=== PATIENT | male | born 1960 | race Caucasian/White ===

== ENCOUNTER 2016-03-25 15:56 | Emergency (ER) | payer MEDICARE, OTHER ==
[~2016-03-25] VITALS: Ht 177.8 cm; Wt 100.0 kg
[~2016-03-25 15:56] MED LIST: AMITRIPTYLINE H25 M1 PO; AMITRIPTYLINE H50 M1 PO; AMOXICILLIN 8751 TAB PO; ASPIRIN 81M81 MG/TA2 PO; ATROPINE SULFATE5 ML OP; BENADRYL50 MG PO; BONINE25 MG PO; CEPHALEXIN500 M1 PO; CLOTRIM ANTIFUNGAL1% TP; COMBIGAN 0.2%-0.5 ML OS; COUMADIN 5MG5 MG/TAB PO; DAILY VITAMIN1 TAB PO; DILAUDID 4MG TAB4 MG PO; DOXYCYCLINE 10100 MG PO; DULCOLAX S10 MG/SUPP RC; DYAZIDE 25 MG-31 CAP PO; EFFEXOR-XR150 MG PO; FLOMAX 0.40.4 MG/CAP PO; GLUCOPHAGE PO; HALDOL .5M0.5 MG/TAB PO; HUMALOG100 U/ML SC; HUMALOG100 U/ML SQ; HUMULIN 70/3100 U/ML; INSHUMULIN7030 SQ; INSULIN 70/3100 U/ML SQ; INSULIN HUMA100 U/ML SC; KLONOPIN 1MG1 MG PO; LANTUS; LANTUS100 U/ML; LANTUS100 U/ML SQ; LEVAQUIN 5500 MG/101 IV; LEVAQUIN 5500 MG/TA1 PO; LEVEMIR FLEX100 U/ML SQ; LORTAB 7.5/5001 TAB; LOTRIMIN15 GM TOP; LOVENOX 6060 MG/0.6 SQ; MACROBID 1100 MG/CAP PO; MECLIZINE25 MG PO; MEN'S MULTIVITA1 TAB PO; MILK OF MA400 MG/5 M PO; MIRALAX PA17 GM/Dose PO; MORPHINE 1515 MG/TAB PO; MOTRIN 400400 MG/TAB PO; MS CONTIN60 MG PO; MULTI-DAY1 TA1 PO; NEURONTIN400 MG/CAP PO; NORCO 325 MG-101 TAB PO; NORCO 325 MG-51 TAB PO; NORCO 325 MG-7.1 TAB; NORCO 325 MG-7.1 TAB PO; NOVLOG SQ; PERCOCET 325 MG1 TA2 PO; PERCR 7.5 PO; PRILOSEC10 MG PO; PRINCIPEN500 MG PO; PROAIR HFA0.09 MG/AC IH; RAPAFLO8 MG PO; SAVELLA100 MG PO; SAVELLA25 MG PO; SAVELLA50 MG PO; SENNA8.6 MG PO; SENOKOT S 50 MG1 TAB PO; SENOKOT8.6 MG PO; STOOL SOFTENER100 M2 PO; TIMOLOL MALEATE5 M1 OP; TRAMADOL; TRESIBA FL200 UNIT/1 SQ; TRICOR145 MG PO; TYLENOL 325MG325 MG PO; ULTRAM 50MG TAB50 MG PO; UNABLE; VENTOLIN0.09 MG IH; VICODIN PO; VITAMIN C500 MG PO; VOLTAREN SR25 MG/TAB PO; ZANAFLEX 4MG TAB4 MG PO; ZITHROMAX 250M250 MG PO; ZOFRAN 4MG T4 MG/TAB PO; ZOFRAN8 MG PO; [UNRECOGNIZED DRUG - REMARK] PO
[2016-03-25 16:56] LABS: BASO % 0.4 % (0.0-2.0); EOS # 0.1 (0.0-0.7); EOS % 1.1 % (0-4.0); GRAN # 3.7 (1.4-6.5); GRAN % 70.9 % (42.2-75.2); LYMPH # 0.9 (1.2-3.4); LYMPH % 17.7 % (20.0-51.0); MEAN CELL VOLUME 87 fl (80.0-100.0); MEAN CORPUSCULAR HGB CONC 34 g/dl (33.0-37.0); MEAN PLATELET VOLUME 10.7 fl (7.4-10.4); MONO # 0.5 (0.1-0.6); MONO % 9.5 % (1.7-9.3); PLATELET COUNT 219 K/mm3 (130-400); RED BLOOD COUNT 3.39 M/mm3 (4.20-5.60); REDCELL DISTRIBUTION WIDTH-CV 13.7 % (11.5-14.5); WHITE BLOOD COUNT 5.3 K/mm3 (4.8-10.8)
[2016-03-25 17:05] LABS: HEMATOCRIT 29.5 % (42.0-52.0); HEMOGLOBIN 9.9 g/dl (13.5-18.0); MEAN CORPUSCULAR HEMOGLOBIN 29 pg (27.0-31.0)
[2016-03-25 17:12] LABS: ADJUSTED CALCIUM 9.2 mg/dL (8.4-10.2); ALBUMIN 3.5 gm/dL (3.5-5.0); BILIRUBIN,TOTAL 0.5 mg/dL (0.0-1.0); C-REACTIVE PROTEIN 2.2 mg/dL (0.0-0.9); CALCIUM 8.8 mg/dL (8.4-10.2); CREATININE, serum 1.1 mg/dL (0.66-1.25); POTASSIUM 4.5 mmol/L (3.4-5.0); TOTAL PROTEIN 7.1 gm/dL (6.4-8.2)
[2016-03-25 19:53] VITALS: BP 126/71; PULSE 83; TEMP 97.4
== END 2016-03-25 19:54 | disposition home or self-care (01) ==
LOC: COL.ER 15:56
PROVIDERS: Physician Assistant
DX: M70.862 Other soft tissue disorders related to use, overuse and pressure, left lower leg (principal); L89.899 Pressure ulcer of other site, unspecified stage; E10.65 Type 1 diabetes mellitus with hyperglycemia; E10.40 Type 1 diabetes mellitus with diabetic neuropathy, unspecified; Z79.4 Long term (current) use of insulin; I10 Essential (primary) hypertension; S92.532G Displaced fracture of distal phalanx of left lesser toe(s), subsequent encounter for fracture with delayed healing; X58.XXXD Exposure to other specified factors, subsequent encounter; Z99.3 Dependence on wheelchair
CPT/HCPCS: J1170; J1815; J7030; J7040

== ENCOUNTER 2016-03-26 17:16 | Inpatient (IN) | payer MEDICARE, MEDICAID ==
[~2016-03-26] VITALS: Ht 177.8 cm; Wt 102.5 kg
[2016-03-26 18:14] LABS: BASO % 0.3 % (0.0-2.0); EOS % 0.5 % (0-4.0); GRAN # 4.6 (1.4-6.5); GRAN % 70.9 % (42.2-75.2); HEMATOCRIT 30.1 % (42.0-52.0); HEMOGLOBIN 10.2 g/dl (13.5-18.0); LYMPH # 1.3 (1.2-3.4); LYMPH % 19.5 % (20.0-51.0); MEAN CELL VOLUME 86 fl (80.0-100.0); MEAN CORPUSCULAR HEMOGLOBIN 29 pg (27.0-31.0); MEAN CORPUSCULAR HGB CONC 34 g/dl (33.0-37.0); MEAN PLATELET VOLUME 10.6 fl (7.4-10.4); MONO # 0.6 (0.1-0.6); MONO % 8.5 % (1.7-9.3); PLATELET COUNT 243 K/mm3 (130-400); RED BLOOD COUNT 3.51 M/mm3 (4.20-5.60); REDCELL DISTRIBUTION WIDTH-CV 13.7 % (11.5-14.5); WHITE BLOOD COUNT 6.5 K/mm3 (4.8-10.8)
[2016-03-26 18:28] LABS: ADJUSTED CALCIUM 9.4 mg/dL (8.4-10.2); ALBUMIN 3.5 gm/dL (3.5-5.0); BILIRUBIN,TOTAL 0.5 mg/dL (0.0-1.0); C-REACTIVE PROTEIN 2.1 mg/dL (0.0-0.9); CREATININE, serum 0.93 mg/dL (0.66-1.25); POTASSIUM 4.1 mmol/L (3.4-5.0); TOTAL PROTEIN 7.2 gm/dL (6.4-8.2)
[2016-03-26 19:04] LABS: PH 5 (5-8); SQUAMOUS EPITHELIAL None Seen /hpf; URINE APPEARANCE Clear; URINE BACTERIA Rare /hpf; URINE BILIRUBIN Negative (NEGATIVE); URINE BLOOD 2+ (NEGATIVE); URINE COLOR Straw; URINE GLUCOSE 3+ (NEGATIVE); URINE KETONE Negative (NEGATIVE); URINE UROBILINOGEN Negative (NEGATIVE); URINE WBC 0-2 /hpf
[2016-03-26 21:57] VITALS: BP 151/69; PULSE 93; TEMP 98.1
[2016-03-27 03:55] VITALS: BP 124/71; PULSE 87; TEMP 98
[2016-03-27 08:10] VITALS: BP 126/68; PULSE 88; TEMP 98.4
[2016-03-27 11:59] VITALS: BP 147/87; PULSE 78; TEMP 98.7
[2016-03-27 16:13] VITALS: BP 127/72; PULSE 76; TEMP 98
[2016-03-27 20:01] VITALS: BP 133/66; PULSE 71; TEMP 98.7
[2016-03-27 23:37] VITALS: BP 119/71; PULSE 72; TEMP 98.2
[2016-03-28 03:52] VITALS: BP 124/72; PULSE 67; TEMP 97.4
[2016-03-28 06:54] LABS: BASO % 0.4 % (0.0-2.0); GRAN % 38.2 % (42.2-75.2); LYMPH # 2.8 (1.2-3.4); LYMPH % 53.8 % (20.0-51.0); MEAN CELL VOLUME 90 fl (80.0-100.0); MEAN CORPUSCULAR HGB CONC 33 g/dl (33.0-37.0); MEAN PLATELET VOLUME 10.7 fl (7.4-10.4); MONO # 0.4 (0.1-0.6); MONO % 7.2 % (1.7-9.3); PLATELET COUNT 237 K/mm3 (130-400); RED BLOOD COUNT 3.08 M/mm3 (4.20-5.60); REDCELL DISTRIBUTION WIDTH-CV 14.3 % (11.5-14.5); WHITE BLOOD COUNT 5.3 K/mm3 (4.8-10.8)
[2016-03-28 06:55] LABS: HEMATOCRIT 27.7 % (42.0-52.0); MEAN CORPUSCULAR HEMOGLOBIN 29 pg (27.0-31.0)
[2016-03-28 07:11] LABS: CALCIUM 8.4 mg/dL (8.4-10.2); CREATININE, serum 0.91 mg/dL (0.66-1.25)
[2016-03-28 08:39] VITALS: BP 106/62; PULSE 74; TEMP 97.6
[2016-03-28 11:34] VITALS: BP 127/67; PULSE 72; TEMP 98
[2016-03-28 16:49] VITALS: BP 133/78; PULSE 74; TEMP 97.9
[2016-03-28 20:11] VITALS: BP 125/61; PULSE 79; TEMP 98.3
[2016-03-29] VITALS (7 sets, daily range): BP systolic 114–138; BP diastolic 57–85; PULSE 69–78; TEMP 97.4–98.8
[2016-03-29 08:01] LABS: BASO % 0.2 % (0.0-2.0); LYMPH # 2.2 (1.2-3.4); LYMPH % 39.2 % (20.0-51.0); MEAN CELL VOLUME 89 fl (80.0-100.0); MEAN CORPUSCULAR HGB CONC 32 g/dl (33.0-37.0); MEAN PLATELET VOLUME 10.8 fl (7.4-10.4); MONO # 0.4 (0.1-0.6); MONO % 6.9 % (1.7-9.3); PLATELET COUNT 256 K/mm3 (130-400); RED BLOOD COUNT 3.21 M/mm3 (4.20-5.60); REDCELL DISTRIBUTION WIDTH-CV 14.3 % (11.5-14.5); WHITE BLOOD COUNT 5.6 K/mm3 (4.8-10.8)
[2016-03-29 08:04] LABS: HEMATOCRIT 28.7 % (42.0-52.0); HEMOGLOBIN 9.2 g/dl (13.5-18.0); MEAN CORPUSCULAR HEMOGLOBIN 29 pg (27.0-31.0)
[2016-03-29 08:16] LABS: CALCIUM 8.8 mg/dL (8.4-10.2); CREATININE, serum 0.99 mg/dL (0.66-1.25); POTASSIUM 4.5 mmol/L (3.4-5.0)
[2016-03-30 03:52] VITALS: BP 144/83; PULSE 80; TEMP 98.7
[2016-03-30 07:35] VITALS: BP 132/68; PULSE 77; TEMP 98.1
[2016-03-30 09:36] LABS: BASO % 0.3 % (0.0-2.0); GRAN # 3.9 (1.4-6.5); GRAN % 59.4 % (42.2-75.2); LYMPH # 2.3 (1.2-3.4); LYMPH % 34.3 % (20.0-51.0); MEAN CELL VOLUME 91 fl (80.0-100.0); MEAN CORPUSCULAR HGB CONC 32 g/dl (33.0-37.0); MEAN PLATELET VOLUME 10.6 fl (7.4-10.4); MONO # 0.4 (0.1-0.6); MONO % 5.5 % (1.7-9.3); PLATELET COUNT 265 K/mm3 (130-400); RED BLOOD COUNT 3.15 M/mm3 (4.20-5.60); REDCELL DISTRIBUTION WIDTH-CV 14.3 % (11.5-14.5); WHITE BLOOD COUNT 6.6 K/mm3 (4.8-10.8)
[2016-03-30 09:40] LABS: HEMATOCRIT 28.6 % (42.0-52.0); HEMOGLOBIN 9.2 g/dl (13.5-18.0); MEAN CORPUSCULAR HEMOGLOBIN 29 pg (27.0-31.0)
[2016-03-30 09:49] LABS: CALCIUM 9.1 mg/dL (8.4-10.2); CREATININE, serum 0.95 mg/dL (0.66-1.25); POTASSIUM 4.3 mmol/L (3.4-5.0)
[2016-03-30 11:46] VITALS: BP 123/67; PULSE 79; TEMP 97.7
[2016-03-30 15:48] VITALS: BP 126/71; PULSE 72; TEMP 98
[2016-03-30 20:29] VITALS: BP 141/83; PULSE 80; TEMP 98.5
[2016-03-31 01:16] VITALS: BP 133/65; PULSE 74; TEMP 98.7
[2016-03-31 03:41] VITALS: BP 124/70; PULSE 71; TEMP 97.7
[2016-03-31 07:11] LABS: BASO % 0.2 % (0.0-2.0); GRAN # 3.2 (1.4-6.5); GRAN % 49.6 % (42.2-75.2); LYMPH # 2.7 (1.2-3.4); LYMPH % 41.4 % (20.0-51.0); MEAN CELL VOLUME 91 fl (80.0-100.0); MEAN CORPUSCULAR HGB CONC 32 g/dl (33.0-37.0); MEAN PLATELET VOLUME 10.8 fl (7.4-10.4); MONO # 0.5 (0.1-0.6); MONO % 8.3 % (1.7-9.3); PLATELET COUNT 258 K/mm3 (130-400); RED BLOOD COUNT 2.92 M/mm3 (4.20-5.60); REDCELL DISTRIBUTION WIDTH-CV 14.6 % (11.5-14.5); WHITE BLOOD COUNT 6.4 K/mm3 (4.8-10.8)
[2016-03-31 07:19] LABS: HEMATOCRIT 26.5 % (42.0-52.0); HEMOGLOBIN 8.4 g/dl (13.5-18.0); MEAN CORPUSCULAR HEMOGLOBIN 29 pg (27.0-31.0)
[2016-03-31 07:24] LABS: CALCIUM 8.7 mg/dL (8.4-10.2); CREATININE, serum 0.95 mg/dL (0.66-1.25); POTASSIUM 4.4 mmol/L (3.4-5.0)
[2016-03-31 08:51] VITALS: BP 127/63; PULSE 79; TEMP 97.6
[2016-03-31] MEDS ORDERED: ZESTRIL 5MG5 MG PO (10:23)
[2016-03-31] MEDS ORDERED: FLEXERIL 1010 MG/TAB PO (10:23)
[2016-03-31] MEDS ORDERED: NOVLOG SQ (10:23)
[2016-03-31 11:51] VITALS: BP 127/67; PULSE 75; TEMP 97.8
[2016-03-31 19:52] VITALS: BP 154/82; PULSE 81; TEMP 98.1
[2016-04-01 08:24] VITALS: BP 149/91; PULSE 82; TEMP 97.9
[2016-04-01 11:29] VITALS: BP 134/72; PULSE 80; TEMP 98.1
[2016-04-01 12:15] VITALS: BP 134/72; PULSE 80; TEMP 98.1
== END 2016-04-01 14:50 | DRG 74 ==
LOC: COL.ER 17:16 → MEDICAL 20:32
PROVIDERS: Emergency Medicine; Internal Medicine; Physician Assistant
DX: E11.42 Type 2 diabetes mellitus with diabetic polyneuropathy (principal); G82.20 Paraplegia, unspecified; E87.2 Acidosis; E87.1 Hypo-osmolality and hyponatremia; E11.65 Type 2 diabetes mellitus with hyperglycemia; M54.16 Radiculopathy, lumbar region; Z79.4 Long term (current) use of insulin; I10 Essential (primary) hypertension; E11.621 Type 2 diabetes mellitus with foot ulcer; L97.529 Non-pressure chronic ulcer of other part of left foot with unspecified severity; L97.519 Non-pressure chronic ulcer of other part of right foot with unspecified severity; S92.422D Displaced fracture of distal phalanx of left great toe, subsequent encounter for fracture with routine healing; I70.25 Atherosclerosis of native arteries of other extremities with ulceration; S82.54XA Nondisplaced fracture of medial malleolus of right tibia, initial encounter for closed fracture
CPT/HCPCS: 99223-AI; 99232-AI; 99239; A6209; A6212; G0283-GP; G0378; G8978-GP; G8979-GP; J1170; J1650; J1815; J2405; J2543; J2550; J3370; J7030; J7040; J7050

== ENCOUNTER → 2016-04-09 | Outpatient (CLI) | payer MEDICARE, MEDICAID ==
[~2016-04-09] MED LIST changes: +BACTRIM DS 8001 TAB PO; +EFFEXOR XR75 MG/CAP PO; +FLEXERIL 1010 MG/TAB PO; +LEVEMIR100 U/ML SQ; +LIPITOR 80MG80 MG PO; +MOTRIN 800800 MG/TAB PO; +MUCINEX 60600 MG/TA1 PO; +NOVOLOG 100U100 U/M1 SQ; +OXYCONTIN15 MG PO; +PROSTAT SF; +TYLENOL 500MG500 MG PO; +ZESTRIL 10MG10 MG PO; +ZESTRIL 5MG5 MG PO
== END ==
LOC: WCC 09:31
DX: E11.621 Type 2 diabetes mellitus with foot ulcer (principal); L97.529 Non-pressure chronic ulcer of other part of left foot with unspecified severity; L97.519 Non-pressure chronic ulcer of other part of right foot with unspecified severity; M86.18 Other acute osteomyelitis, other site
CPT/HCPCS: 13973; A6199; G0463

== ENCOUNTER → 2016-04-11 | Outpatient (CLI) | payer MEDICARE | LOC: COL.RAD 13:00 | DX: Z53.9 Procedure and treatment not carried out, unspecified reason (principal) ==

== ENCOUNTER → 2016-04-16 | Outpatient (CLI) | payer MEDICARE, MEDICAID | LOC: WCC 08:44 | DX: S90.411A Abrasion, right great toe, initial encounter (principal) | CPT/HCPCS: 27510; A6197; G0463 ==

== ENCOUNTER 2016-05-02 08:51 | Observation (INO) | payer MEDICARE, MEDICAID ==
[~2016-05-02] VITALS: Ht 177.8 cm; Wt 102.3 kg
[~2016-05-02 08:51] MED LIST changes: -BACTRIM DS 8001 TAB PO; -EFFEXOR XR75 MG/CAP PO; -LEVEMIR100 U/ML SQ; -LIPITOR 80MG80 MG PO; -MOTRIN 800800 MG/TAB PO; -MUCINEX 60600 MG/TA1 PO; -NOVOLOG 100U100 U/M1 SQ; -OXYCONTIN15 MG PO; -PROSTAT SF; -TYLENOL 500MG500 MG PO; -ZESTRIL 10MG10 MG PO
[2016-05-05] VITALS (15 sets, daily range): BP systolic 93–126; BP diastolic 54–91; PULSE 69–97; TEMP 98.2
[2016-05-05] MEDS ORDERED: LIPITOR 80MG80 MG PO (17:30)
[2016-05-05] MEDS ORDERED: EFFEXOR XR75 MG/CAP PO (17:31)
[2016-05-05] MEDS ORDERED: LEVEMIR100 U/ML SQ (17:33)
[2016-05-05] MEDS ORDERED: DOXYCYCLINE 10100 MG PO (17:36)
[2016-05-05] MEDS ORDERED: PROSTAT SF (17:37)
[2016-05-05] MEDS ORDERED: NOVOLOG 100U100 U/M1 SQ (17:39)
[2016-05-05] MEDS ORDERED: TYLENOL 500MG500 MG PO (17:40)
[2016-05-05] MEDS ORDERED: NORCO 325 MG-51 TAB PO ×2 (17:42→17:43)
[2016-05-05] MEDS ORDERED: MUCINEX 60600 MG/TA1 PO (17:42)
[2016-05-06 00:13] VITALS: BP 106/55; PULSE 77; TEMP 98.2
[2016-05-06 04:56] VITALS: BP 119/54; PULSE 71; TEMP 98.5
[2016-05-06 05:40] VITALS: BP 120/53; PULSE 70; TEMP 98.5
[2016-05-06] MEDS ORDERED: NORCO 325 MG-7.1 TAB PO (06:17)
[2016-05-06 07:18] LABS: HEMATOCRIT 29.1 % (42.0-52.0); HEMOGLOBIN 9.3 g/dl (13.5-18.0)
[2016-05-06 09:15] VITALS: BP 124/58; PULSE 103; TEMP 98.1
[2016-05-06 11:20] VITALS: BP 124/58; PULSE 103; TEMP 98.1
== END 2016-05-06 14:00 ==
LOC: INPTSU 05-05 11:02 → JCC 05-05 14:30 → SURG 05-05 14:30
PROVIDERS: Physician Assistant
DX: E11.52 Type 2 diabetes mellitus with diabetic peripheral angiopathy with gangrene (principal); M86.172 Other acute osteomyelitis, left ankle and foot; M67.02 Short Achilles tendon (acquired), left ankle; Z79.4 Long term (current) use of insulin; I10 Essential (primary) hypertension
CPT/HCPCS: A9284; G0378; J0690; J1815; J2250; J2270; J2405; J2704; J2765; J3010; J7030

== ENCOUNTER 2016-06-30 02:31 | Observation (INO) | payer MEDICARE, MEDICAID ==
[2016-06-30] VITALS (8 sets, daily range): BP systolic 139–167; BP diastolic 78–99; PULSE 82–99; TEMP 97.9–98.2
[~2016-06-30] VITALS: Ht 177.8 cm; Wt 90.9 kg
[~2016-06-30 02:31] MED LIST changes: +EFFEXOR XR75 MG/CAP PO; +LEVEMIR100 U/ML SQ; +LIPITOR 80MG80 MG PO; +MUCINEX 60600 MG/TA1 PO; +NOVOLOG 100U100 U/M1 SQ; +PROSTAT SF; +TYLENOL 500MG500 MG PO
[2016-06-30 03:37] LABS: BASO % 0.6 % (0.0-2.0); EOS # 0.3 (0.0-0.7); EOS % 4.2 % (0-4.0); GRAN # 2.9 (1.4-6.5); GRAN % 44.6 % (42.2-75.2); LYMPH # 2.6 (1.2-3.4); LYMPH % 40.2 % (20.0-51.0); MEAN CELL VOLUME 85 fl (80.0-100.0); MEAN CORPUSCULAR HGB CONC 33 g/dl (33.0-37.0); MONO # 0.7 (0.1-0.6); MONO % 10.2 % (1.7-9.3); PLATELET COUNT 175 K/mm3 (130-400); RED BLOOD COUNT 3.48 M/mm3 (4.20-5.60); REDCELL DISTRIBUTION WIDTH-CV 15.1 % (11.5-14.5); WHITE BLOOD COUNT 6.4 K/mm3 (4.8-10.8)
[2016-06-30 03:39] LABS: HEMATOCRIT 29.6 % (42.0-52.0); HEMOGLOBIN 9.9 g/dl (13.5-18.0); MEAN CORPUSCULAR HEMOGLOBIN 28 pg (27.0-31.0)
[2016-06-30 03:50] LABS: ADJUSTED CALCIUM 9.1 mg/dL (8.4-10.2); ALANINE AMINOTRANSFERASE 26 U/L (21-72); ALBUMIN 3.5 gm/dL (3.5-5.0); ALKALINE PHOSPHATASE 80 U/L (50-136); ANION GAP 14 mmol/L (7-16); BILIRUBIN,TOTAL 0.4 mg/dL (0.0-1.0); BLOOD UREA NITROGEN 28 mg/dL (9-20); C-REACTIVE PROTEIN 1.2 mg/dL (0.0-0.9); CALCIUM 8.7 mg/dL (8.4-10.2); CARBON DIOXIDE 23 mmol/L (22-30); CHLORIDE 99 mmol/L (98-107); CREATININE, serum 1.09 mg/dL (0.66-1.25); SODIUM 136 mmol/L (137-145)
[2016-06-30 03:59] LABS: B-TYPE NATRIURETIC PEPTIDE 263 pg/mL (0-125)
[2016-06-30 04:07] LABS: GLUCOSE 445 mg/dL (74-106); TROPONIN-I < 0.012 ng/mL (0.000-0.034)
[2016-06-30] MEDS ORDERED: ZESTRIL 10MG10 MG PO (16:09)
[2016-06-30] MEDS ORDERED: OXYCONTIN15 MG PO (16:13)
== END 2016-06-30 19:10 | disposition home health service (06) ==
LOC: COL.ER 02:31 → PEDS 07:27
PROVIDERS: Emergency Medicine
DX: R07.89 Other chest pain (principal); M25.571 Pain in right ankle and joints of right foot; E11.9 Type 2 diabetes mellitus without complications; Z86.711 Personal history of pulmonary embolism; Z79.4 Long term (current) use of insulin
CPT/HCPCS: A9502; G0378; J1170; J1815; J2785; J7030; Q9967

== ENCOUNTER 2016-10-26 07:24 | Emergency (ER) | payer OTHER ==
[~2016-10-26] VITALS: Ht 177.8 cm; Wt 81.8 kg
[~2016-10-26 07:24] MED LIST changes: +OXYCONTIN15 MG PO; +ZESTRIL 10MG10 MG PO
[2016-10-26 07:27] VITALS: BP 156/77; TEMP 98.4
[2016-10-26] MEDS ORDERED: MOTRIN 800800 MG/TAB PO (07:52)
[2016-10-26 08:34] LABS: ADJUSTED CALCIUM 9.4 mg/dL (8.4-10.2); ALANINE AMINOTRANSFERASE 21 U/L (21-72); ALBUMIN 3.3 gm/dL (3.5-5.0); ALKALINE PHOSPHATASE 77 U/L (50-136); ANION GAP 7 mmol/L (7-16); BILIRUBIN,TOTAL 0.3 mg/dL (0.0-1.0); BLOOD UREA NITROGEN 18 mg/dL (9-20); C-REACTIVE PROTEIN < 0.5 mg/dL (0.0-0.9); CALCIUM 8.8 mg/dL (8.4-10.2); CARBON DIOXIDE 26 mmol/L (22-30); CHLORIDE 102 mmol/L (98-107); CREATININE, serum 0.93 mg/dL (0.66-1.25); GLUCOSE 399 mg/dL (74-106); POTASSIUM 4.1 mmol/L (3.4-5.0); SODIUM 135 mmol/L (137-145); TOTAL PROTEIN 6.7 gm/dL (6.4-8.2)
[2016-10-26 08:35] LABS: BASO % 0.5 % (0.0-2.0); EOS # 0.2 (0.0-0.7); EOS % 1.9 % (0-4.0); GRAN % 62.8 % (42.2-75.2); HEMATOCRIT 34.1 % (42.0-52.0); HEMOGLOBIN 11.2 g/dl (13.5-18.0); LYMPH # 2.2 (1.2-3.4); LYMPH % 27.2 % (20.0-51.0); MEAN CELL VOLUME 87 fl (80.0-100.0); MEAN CORPUSCULAR HEMOGLOBIN 29 pg (27.0-31.0); MEAN CORPUSCULAR HGB CONC 33 g/dl (33.0-37.0); MEAN PLATELET VOLUME 10.9 fl (7.4-10.4); MONO # 0.6 (0.1-0.6); MONO % 7.3 % (1.7-9.3); PLATELET COUNT 191 K/mm3 (130-400); REDCELL DISTRIBUTION WIDTH-CV 13.6 % (11.5-14.5); WHITE BLOOD COUNT 7.9 K/mm3 (4.8-10.8)
[2016-10-26] MEDS ORDERED: BACTRIM DS 8001 TAB PO (08:41)
[2016-10-26 09:42] VITALS: PULSE 88
== END 2016-10-26 09:43 | disposition home or self-care (01) ==
LOC: COL.ER 07:24
PROVIDERS: Family Medicine
DX: L03.116 Cellulitis of left lower limb (principal); L03.115 Cellulitis of right lower limb; L97.829 Non-pressure chronic ulcer of other part of left lower leg with unspecified severity; L97.519 Non-pressure chronic ulcer of other part of right foot with unspecified severity; L97.819 Non-pressure chronic ulcer of other part of right lower leg with unspecified severity; Z89.512 Acquired absence of left leg below knee; E11.9 Type 2 diabetes mellitus without complications; Z79.4 Long term (current) use of insulin; I10 Essential (primary) hypertension; Z87.891 Personal history of nicotine dependence

== ENCOUNTER 2019-04-21 02:41 | Emergency (ER) | payer MEDICARE, MEDICAID ==
[~2019-04-21] VITALS: Ht 177.8 cm; Wt 111.1 kg
[~2019-04-21 02:41] MED LIST changes: +BACTRIM DS 8001 TAB PO; +MOTRIN 800800 MG/TAB PO
[2019-04-21 02:51] VITALS: BP 154/84; TEMP 98
[2019-04-21 04:29] VITALS: PULSE 107
== END 2019-04-21 04:29 | disposition home or self-care (01) ==
LOC: COL.ER 02:41
DX: M96.830 Postprocedural hemorrhage of a musculoskeletal structure following a musculoskeletal system procedure (principal); S91.001A Unspecified open wound, right ankle, initial encounter; I48.91 Unspecified atrial fibrillation; E11.42 Type 2 diabetes mellitus with diabetic polyneuropathy; Z89.512 Acquired absence of left leg below knee; Z79.82 Long term (current) use of aspirin; Z79.4 Long term (current) use of insulin
CPT/HCPCS: Q4045